=== PATIENT | male | born 1930 | race Caucasian/White ===

== ENCOUNTER 2017-12-03 12:46 | Emergency (ER) | payer MEDICARE ==
[~2017-12-03] VITALS: Ht 172.7 cm; Wt 145.0 kg
[~2017-12-03 12:46] MED LIST: COREG6.25 MG PO; COUMADIN5 MG PO; GLIPIZIDE ER5 MG PO; LASIX 40 MG40 MG/TAB PO; LORATADINE10 M1 PO; LOSARTAN POTASS50 MG PO; MIRALAX3350 N1 PO; NABUMETONE500 MG PO; SIMVASTATIN40 MG PO; STOOL SOFTENER100 MG PO; TAMSULOSIN HCL0.4 MG PO; TRAMADOL HCL50 MG PO; ZOFRAN4 MG/TAB PO
[2017-12-03] MEDS ORDERED: TRAMADOL HYDROC50 MG PO (14:54)
[2017-12-03] MEDS ORDERED: EC-NAPROSYN500 MG PO (15:01)
[2017-12-03 15:02] VITALS: BP 148/73
== END 2017-12-03 15:03 | disposition home or self-care (01) ==
LOC: ED 12:46
DX: M25.551 Pain in right hip (principal); M25.561 Pain in right knee; M79.604 Pain in right leg; E66.9 Obesity, unspecified; I10 Essential (primary) hypertension; Z87.81 Personal history of (healed) traumatic fracture

== ENCOUNTER 2018-12-19 21:30 | Emergency (ER) | payer MEDICARE ==
[~2018-12-19] VITALS: Ht 172.7 cm; Wt 145.4 kg
[~2018-12-19 21:30] MED LIST changes: +EC-NAPROSYN500 MG PO; +TRAMADOL HYDROC50 MG PO
[2018-12-19 22:53] LABS: HEMOGLOBIN 11.2 g/dl (14.0-18.0); IMMATURE GRANULOCYTES 0.6 % (0.0-5.0); MEAN CELL VOLUME 92.4 fL CALC (80.0-100.0); MEAN CORPUSCULAR HGB 30.4 pG CALC (26.0-32.0); MEAN CORPUSCULAR HGB CONC 32.9 g/L CALC (32.0-36.0); NEUT# 6.79 thou/uL (1.82-7.42); RED BLOOD COUNT 3.68 mill/uL (4.70-6.10); RED CELL DISTRI WIDTH 14.1 % (11.5-15.5)
[2018-12-19 23:01] LABS: ALBUMIN 3.4 g/dL (3.2-5.0); BILIRUBIN, TOTAL 0.5 mg/dL (0.0-1.4); CREATININE 2.8 mg/dL (0.7-1.3); TOTAL PROTEIN 6.3 g/dL (6.3-8.2)
[2018-12-19 23:08] LABS: INTERNATIONAL NORMALIZED RATIO 1.9 RATIO (0.7-1.3); PROTHROMBIN TIME 20.1 SECONDS (9.0-12.5)
[2018-12-19 23:09] LABS: POTASSIUM 5.6 mmol/l (3.5-5.1)
[2018-12-20 00:15] VITALS: BP 143/63
[2018-12-20 00:30] LABS: URINE BILIRUBIN - DIPSTICK NEGATIVE (NEGATIVE); URINE BLOOD DIPSTICK NEGATIVE (NEGATIVE); URINE COLOR YELLOW; URINE GLUCOSE - DIPSTICK NEGATIVE (NEGATIVE); URINE KETONE NEGATIVE (NEGATIVE); URINE LEUK ESTERASE NEGATIVE (NEGATIVE); URINE NITRITE - DIPSTICK NEGATIVE (Negative); URINE PH 6.5 (4.5-8.0); URINE PROTEIN - DIPSTICK 30 mg/dL (NEG-TRACE); URINE UROBILINOGEN - DIPSTICK 0.2 E.U./dL (0.2)
[2018-12-20 00:32] VITALS: BP 146/63
[2018-12-20 00:45] LABS: URINE RBC 0-2 RBC/hpf (0-5); URINE WBC 0-2 WBC/hpf (0-5)
[2018-12-20 02:02] VITALS: BP 139/61
[2018-12-20 02:21] VITALS: BP 152/67
[2018-12-20 02:25] VITALS: BP 152/67
== END 2018-12-20 02:25 | disposition short-term general hospital (02) ==
LOC: ED 21:30
PROVIDERS: Emergency Medicine
PROC: 30233K1 Transfusion of Nonautologous Frozen Plasma into Peripheral Vein, Percutaneous Approach (ICD-10-PCS; principal; 2018-12-20)
PROC: 30233K1 Transfusion of Nonautologous Frozen Plasma into Peripheral Vein, Percutaneous Approach (ICD-10-PCS; 2018-12-20)
DX: K92.2 Gastrointestinal hemorrhage, unspecified (principal); I10 Essential (primary) hypertension; E11.9 Type 2 diabetes mellitus without complications; Z93.3 Colostomy status; Z85.038 Personal history of other malignant neoplasm of large intestine; Z86.718 Personal history of other venous thrombosis and embolism; Z79.01 Long term (current) use of anticoagulants; Z86.711 Personal history of pulmonary embolism
CPT/HCPCS: S0164